=== PATIENT | male | born 2000 | race African-American/Black ===

== ENCOUNTER 2024-12-20 22:15 | Emergency (ER) | payer SELFPAY ==
[~2024-12-20] VITALS: Ht 182.9 cm; Wt 87.0 kg
[2024-12-20 22:22] VITALS: O2SAT 100
[2024-12-20 23:20] VITALS: BP 122/71; PULSE 46; RESP 18; TEMP 36.8; O2SAT 100
== END 2024-12-20 23:22 | disposition home or self-care (01) ==
LOC: ER 22:15
DX: L02.811 Cutaneous abscess of head [any part, except face] (principal)
CPT/HCPCS: 99282